=== PATIENT | female | born 1955 | race Caucasian/White ===

== ENCOUNTER 2017-09-07 10:17 | Emergency (ER) | payer BC, OTHER, SELFPAY ==
[~2017-09-07] VITALS: Ht 157.5 cm; Wt 84.9 kg
[~2017-09-07 10:17] MED LIST: ALBUTEROL INH INH; ATOR40TA78 PO; CARV3.122 PO; GABA300C10 PO; GLIM1TAB2 PO; HYDR12.58 PO; IRON PO; LEVO75TA5 PO; LOSA25TA5 PO; METF10002 PO; ONDA4TAB10 PO; PANT40TA5 PO; POTASSIUM PO; SITA50TA PO; SUCR1TAB33 PO; [UNRECOGNIZED DRUG - OTHER] PO; [UNRECOGNIZED DRUG - OTHER] PO; [UNRECOGNIZED DRUG - OTHER] PO
[2017-09-07] MEDS ORDERED: LINA5TAB PO (10:53)
[2017-09-07] MEDS ORDERED: EMPA10TA PO (10:53)
[2017-09-07] MEDS ORDERED: ACETAMINOPHEN 325 MG TABLET PO ONE (11:00)
[2017-09-07] MEDS ORDERED: SODIUM CHLORIDE 0.9% 1,000 ML IV ONE (11:11)
[2017-09-07] MEDS ORDERED: SODIUM CHLORIDE FLUSH 10ML SYR IVF ONE (11:30)
[2017-09-07] MEDS: MORPHINE SULFATE 4 MG/ML, 1ML IVPush PRN ×2 (12:31→13:12)
[2017-09-07 12:46] LABS: BLOOD UREA NITROGEN 23 mg/dL (7-18)
[2017-09-07 13:11] LABS: HEMATOCRIT 41.8 % (34.6-47.8); HEMOGLOBIN 13.8 g/dL (11.7-16.4); WHITE BLOOD COUNT 9.1 x10^3/uL (3.4-10)
[2017-09-07] MEDS ORDERED: HYDROcodone/APAP 5/325 TABLET PO ONE (14:30)
[2017-09-07] MEDS ORDERED: IBUPROFEN 200 MG TABLET PO ONE (14:30)
[2017-09-07 14:35] VITALS: BP 145/76
== END 2017-09-07 14:37 | disposition home or self-care (01) ==
LOC: ED 11:18
DX: M25.551 Pain in right hip (principal); M25.561 Pain in right knee; I10 Essential (primary) hypertension; K21.9 Gastro-esophageal reflux disease without esophagitis; M19.90 Unspecified osteoarthritis, unspecified site; Z90.49 Acquired absence of other specified parts of digestive tract; Z88.8 Allergy status to other drugs, medicaments and biological substances; Z96.641 Presence of right artificial hip joint; W19.XXXA Unspecified fall, initial encounter; Y93.89 Activity, other specified; Y99.8 Other external cause status; Y92.89 Other specified places as the place of occurrence of the external cause
CPT/HCPCS: 36415; 72110; 72192; 73502; 73552; 73564; 80048; 82040; 85025; 85610; 85730; 96361; 96374; 96376; 99285; J7030

== ENCOUNTER 2021-03-29 14:51 | Emergency (ER) | payer BC, OTHER ==
[~2021-03-29] VITALS: Ht 177.8 cm; Wt 71.0 kg
[~2021-03-29 14:51] MED LIST changes: +EMPA10TA PO; -GLIM1TAB2 PO; +GLIM1TAB7 PO; -HYDR12.58 PO; +HYDROCHLOROTH12.5 MG PO; +LINA5TAB PO; +LOSA25TA25 PO; -LOSA25TA5 PO; -PANT40TA5 PO; +PANT40TA6 PO
[2021-03-29] MEDS ORDERED: OXYcodone/APAP 5/325MG TABLET ONE (16:22)
[2021-03-29] MEDS ORDERED: OXYcodone/APAP 5/325MG TABLET PO ONE (16:30)
[2021-03-29 17:00] VITALS: BP 131/71
== END 2021-03-29 17:03 | disposition home or self-care (01) ==
LOC: ED 15:23
DX: S80.01XA Contusion of right knee, initial encounter (principal); M25.551 Pain in right hip; K21.9 Gastro-esophageal reflux disease without esophagitis; I10 Essential (primary) hypertension; E11.40 Type 2 diabetes mellitus with diabetic neuropathy, unspecified; J45.909 Unspecified asthma, uncomplicated; M19.90 Unspecified osteoarthritis, unspecified site; Z90.49 Acquired absence of other specified parts of digestive tract; W01.0XXA Fall on same level from slipping, tripping and stumbling without subsequent striking against object, initial encounter; Y93.89 Activity, other specified; Y92.89 Other specified places as the place of occurrence of the external cause; Y99.8 Other external cause status
CPT/HCPCS: 29505; 99284

== ENCOUNTER 2021-05-25 15:04 | Emergency (ER) | payer OTHER ==
[~2021-05-25] VITALS: Ht 160 cm; Wt 75.0 kg
--- NOTE | 2021-05-25 15:17 | NUR ---
BIBA FOR SOB AND CHEST TIGHTNESS. HX OF ASTHEMA. PT POSTIONED TO COMFORT IN BED. ATTACHED TO MONITORS. VSS. NADN. DR. ALONZO TO BEDSIDE FOR EVALUATION
[2021-05-25] MEDS ORDERED: KETOROLAC 30 MG/1 ML IM ONE (15:30)
[2021-05-25] MEDS ORDERED: KETOROLAC 60 MG/2 ML ONE (15:42)
[2021-05-25 17:01] VITALS: BP 113/53
--- NOTE | 2021-05-25 17:42 | NUR ---
Patient given discharge instructions and they have confirmed that they understand the instructions. Patient ambulatory with steady gait. NAD, all questions answered appropriately, denies additional needs at this time. No personal belongings left in room after discharge.
== END 2021-05-25 17:43 | disposition home or self-care (01) ==
LOC: ED 17:05
DX: J45.41 Moderate persistent asthma with (acute) exacerbation (principal); R94.31 Abnormal electrocardiogram [ECG] [EKG]; E11.9 Type 2 diabetes mellitus without complications; M19.90 Unspecified osteoarthritis, unspecified site; K21.9 Gastro-esophageal reflux disease without esophagitis; I10 Essential (primary) hypertension; Z90.89 Acquired absence of other organs; Z90.710 Acquired absence of both cervix and uterus; Z90.49 Acquired absence of other specified parts of digestive tract; Z88.5 Allergy status to narcotic agent; Z96.641 Presence of right artificial hip joint
CPT/HCPCS: 71046; 93005; 96372; 99283; J1885